=== PATIENT | female | born 1970 | race Caucasian/White ===

== ENCOUNTER 2016-05-04 14:26 | Emergency (ER) | payer BC ==
[~2016-05-04] VITALS: Ht 172.7 cm; Wt 14.0 kg
[~2016-05-04 14:26] MED LIST: ABILIFY10 MG PO; ASPIRIN E.C.81 M1 PO; ATARAX,VISTARIL50 MG PO; ATENOLOL50 M1 PO; ATENOLOL50 MG PO; Ativan PO; BACTERICIN30 GM TP; BUSPIRONE HCL5 MG PO; CORTISPORIN OTI10 ML RIGHT EAR; DULCOLAX5 MG PO; ESCITALOPRAM OX20 MG PO; FLINTSTONES1 TABLET PO; LEVOTHROID,S0.125 MG PO; LEVOXYL125 MCG PO; LEXAPRO10 MG PO; LEXAPRO20 MG PO; Levothroid,Synthroid PO; Lexapro PO; MOTRIN600 MG PO; NITROSTAT0.4 MG PO; OMEPRAZOLE40 M1 PO; PREDNISONE10 MG PO; Tenormin PO; Vicodin,Lortab 5/500 PO; Vicodin,Norco 5/325 PO; celeBREX PO
[2016-05-04 14:46] LABS: HEMATOCRIT 41.4 % (36.0-46.0); MCH 38.9 PG (29.0-34.0); MCHC 34.5 G/DL (30.0-36.0); MCV 112.5 FL (83-99); PLATELET COUNT 285 K/uL (156-360); RBC DIS.WIDTH-CV 14.2 % (11.8-14.6); RBC DIS.WIDTH-SD 55.9 % (39-53); RED BLOOD COUNT 3.68 M/uL (3.80-5.20); WHITE BLOOD COUNT 8.7 K/uL (4.1-10.2)
[2016-05-04 14:57] LABS: CHLORIDE 104 mEq/L (99-109); POTASSIUM 3.8 mEq/L (3.7-5.4); SODIUM 138 mEq/L (136-147)
[2016-05-04 14:59] LABS: GLUCOSE 103 mg/dL (70-99)
[2016-05-04 15:00] LABS: ANION GAP 10 MEQ/L (2-14)
[2016-05-04 15:01] LABS: TOTAL BILIRUBIN 0.6 mg/dL (0.0-1.0)
[2016-05-04 15:03] LABS: ALKALINE PHOSPHATASE 102 IU/L (3-129); GFR ESTIMATE (CALCULATED) > 59 mL/min/
[2016-05-04 15:04] LABS: UREA NITROGEN (BUN) 10 mg/dL (9-23)
[2016-05-04 15:12] LABS: QUANTITATIVE HCG < 4.0 MIU/ML
[2016-05-04] MEDS ORDERED: SUCRALFATE1 GM PO (15:15)
[2016-05-04] MEDS ORDERED: PANTOPRAZOLE SO40 MG PO (15:15)
[2016-05-04 15:25] LABS: ADD MIUA? YES; BILIRUBIN SMALL; BLOOD NEGATIVE; COLOR DK YELLOW ((YELLOW)); GLUCOSE (STRIP) NEGATIVE; KETONES NEGATIVE; LEUKOCYTES SMALL; NITRITE NEGATIVE; PROTEIN (STRIP) TRACE; SPECIFIC GRAVITY 1.023 (1.000-1.030)
[2016-05-04 16:12] LABS: LIPASE 22 U/L (1.0-51.0)
[2016-05-04 16:15] LABS: BACTERIA 1+; CASTS PRESENT /LPF; EPITHELIAL CELLS 2+; MUCUS 2+; RED BLOOD CELLS RARE /HPF (0-5); UCUL ADDED? NO
[2016-05-04 17:46] LABS: CRYSTALS NONE SEEN
[2016-05-04] MEDS ORDERED: NAPROSYN500 MG PO (18:01)
[2016-05-04] MEDS ORDERED: ZOFRAN ODT4 MG PO (18:01)
[2016-05-04] MEDS ORDERED: KEFLEX500 MG PO (18:01)
[2016-05-04 18:09] VITALS: BP 136/83
== END 2016-05-04 18:10 | disposition home or self-care (01) ==
LOC: EME 14:26
DX: N12 Tubulo-interstitial nephritis, not specified as acute or chronic (principal); R11.2 Nausea with vomiting, unspecified; K21.9 Gastro-esophageal reflux disease without esophagitis; I10 Essential (primary) hypertension; Z98.84 Bariatric surgery status; F17.200 Nicotine dependence, unspecified, uncomplicated
CPT/HCPCS: 80053; 81003; 83690; 84702; 85027; 99281; 99285; J1885; J7030